=== PATIENT | female | born 1960 | race Caucasian/White ===

== ENCOUNTER 2019-10-19 20:21 | Emergency (ER) | payer OTHER, SELFPAY ==
--- NOTE | ~2019-10-19 | XR_ITS ---
EXAMINATION: XR chest 2V EXAM DATE: 10/19/2019 21:24 INDICATION: Cough, congestion and shortness of breath. TECHNIQUE: Frontal and lateral projections of the chest obtained and reviewed. Comparison is made to prior examination from 12/31/2013. FINDINGS: The lungs are clear. There are no pleural effusions. The cardiomediastinal silhouette is within normal limits. There is no pneumothorax suspected. The bones and soft tissues are unremarkab le. There are cholecystectomy clips. IMPRESSION: No acute cardiopulmonary findings. Reviewed, dictated and finalized at location A. STER[employer] ART THERAPIST
[2019-10-19 20:25] VITALS: BP 142/86; PULSE 101; RESP 22; TEMP 36.9; O2SAT 100
--- NOTE | 2019-10-19 20:37 | ED.URI ---
HPI - URI/Sore Throat General Chief Complaint: Upper Respiratory Infection Stated Complaint: CONGESTION Time Seen by Provider: 10/19/19 20:35 Source: patient and RN notes reviewed Mode of arrival: ambulatory Limitations: no limitations History of Present Illness HPI Narrative: Pt is a 59 y/o female presenting to the ED c/o SOB. Pt reports she started feeling sick with a ST last Thursday. Pt now states she is now experiencing congestion, SOB at rest, cough, and notes her ST has since resolved. Pt denies wheezing, fever, or N/V. Pt states she is not a smoker. Onset (ago): day(s) (4) Consistency: other (at rest) Associated symptoms: nasal congestion, sore throat (Resolved) and cough Related Data Allergies Allergy/AdvReac Type Severity Reaction Status Date / Time No Known Allergies Allergy Unverified 07/08/19 08:29 Review of Systems Review of Systems: All systems reviewed & are unremarkable except as noted in HPI and below Constitutional: Constitutional: Denies fever(s) ENT: Reports nasal congestion and Reports sore throat (Resolved) Respiratory: Respiratory: Reports cough, Reports dyspnea (at rest) and Denies wheezing Gastrointestinal: Gastrointestinal: Denies nausea and Denies vomiting PMFSH Past Medical History Medical History Anxiety Gallbladder disease HLD (hyperlipidemia) Hypothyroid Shingles Surgical History Surgical History History of History of cholecystectomy History of partial hysterectomy Family History Family History Mother Patient's mother is Social History Social History Smoking status: Never smoker Second hand tobacco smoke exposure: No Alcohol intake: never Gender identity (if verbalized by the patient): Female Exam Narrative: Exam Narrative: APPEARANCE: No acute distress, nontoxic, resting in bed EYES: EOMI HEENT: Normocephalic, atraumatic, TMs clear bilaterally, bilateral turbinates boggy, no erythema or exudate posterior pharynx, tender palpation of the bilateral maxillary sinus RESPIRATORY: No respiratory distress mild wheezing bilateral upper lung hooper with coughing only, no rhonchi or rales CARDIOVASCULAR: Regular rate and rhythm without murmurs rubs or gallops. ABDOMINAL: Soft, nontender, nondistended, no rebound or guarding MUSCULOSKELETAl: Moves all extremities. No clubbing, cyanosis or edema. NEURO: Awake and alert. Following commands, speech normal, no focal deficits SKIN:: Warm, dry. No rashes lesions or abrasions PSYCHIATRIC: Normal affect/mood, Course Course Emergency Course: Following breathing treatment patient states she is feeling much better. Repeat lung exam clear all station bilaterally Discussed with patient results of workup and diagnosis. Discussed need for follow-up with primary care, proper use of medication, and reasons to return to the emergency department. Patient understands and agrees to current treatment plan patient is currently taking Mucinex at home Vital Signs Vital signs: Vital Signs Temperature 98.4 F 10/19/19 20:25 Pulse Rate 101 H 10/19/19 20:25 Respiratory Rate 22 H 10/19/19 20:25 Blood Pressure 142/86 H 10/19/19 20:25 Pulse Oximetry 100 10/19/19 20:25 Temperature 98.4 F 10/19/19 20:25 Pulse Rate 105 H 10/19/19 21:10 Respiratory Rate 18 10/19/19 21:10 Blood Pressure 142/86 H 10/19/19 20:25 Pulse Oximetry 100 10/19/19 20:25 MDM - URI/Sore Throat Lab Data Labs: Influenza A Screen Negative Reference Range: Negative Influenza B Screen Negative Reference Range: Negative Imaging Data Radiologist's impression: ITS Impressions Chest X-Ray 10/19/19 21:25 IMPRESSION: No acute cardiopulmonary findings. Discharge Plan Discharge Cli
[2019-10-19] MEDS: IPRATROPIUM BR 0.02% INH SOLN 0.5 MG/2.5 ML VIAL INHALATION (20:56)
[2019-10-19] MEDS: ALBUTEROL SULFATE NEB 2.5 MG/0.5 ML INH 5 MG INHALATION (20:57)
[2019-10-19 21:00] VITALS: PULSE 98; RESP 20
[2019-10-19 21:10] VITALS: PULSE 105; RESP 18
[2019-10-19] MEDS: BENZONATATE 100 MG CAPSULE 200 MG PO (21:45)
[2019-10-19 21:49] VITALS: BP 141/90; PULSE 100; RESP 20; O2SAT 96
== END 2019-10-19 21:49 | disposition home or self-care (01) ==
PROVIDERS: Emergency Provider Emergency Medicine; PCP Physician Assistant
DX: J06.9 Acute upper respiratory infection, unspecified (principal); E78.5 Hyperlipidemia, unspecified; E03.9 Hypothyroidism, unspecified; F41.9 Anxiety disorder, unspecified
CPT/HCPCS: 71046; 87804; 94640; 99283; A9270

== ENCOUNTER 2020-08-27 10:15 | Emergency (ER) | payer OTHER, SELFPAY ==
[2020-08-27 10:26] VITALS: BP 129/74; PULSE 94; RESP 18; TEMP 36.7; O2SAT 97
--- NOTE | 2020-08-27 10:39 | ED.SKABFB ---
HPI - Skin/Abscess/Foreign Bdy General Chief complaint: Skin/Abscess/Foreign Body Stated complaint: rash Time Seen by Provider: 08/27/20 10:32 Source: patient and RN notes reviewed Mode of arrival: ambulatory Limitations: no limitations History of Present Illness HPI narrative: Patient presents today complaining of 5-day history of severely pruritic rash to most of the body surface, excluding the face, hands, and feet. It does continue to worsen since onset. Denies shortness of breath or difficulty swallowing. Denies changing any household products such as soaps, lotions, fabric softeners or laundry detergents. No new foods, animal plant exposures. 2 days prior to onset of symptoms, patient started a new medication, meloxicam, and stopped it the day she started with symptoms, believing it may be causing her symptoms. She has been taking calamine and Benadryl without relief. Denies any sick symptoms to include fever, fatigue, cough, congestion or rhinorrhea, sore throat. MD complaint: rash Related Data Allergies Allergy/AdvReac Type Severity Reaction Status Date / Time No Known Allergies Allergy Verified 08/27/20 10:32 Review of Systems Review of Systems: Narrative: CONSTITUTIONAL: Denies body aches, fever, chills, or sweats. EYES: Denies visual changes, redness, or discharge. ENT: Denies rhinorrhea, congestion, sore throat, or otalgia. CARDIOVASCULAR: Denies chest pain, palpitations, or edema. RESPIRATORY: Denies cough or dyspnea. GASTROINTESTINAL: Denies abdominal pain, nausea, vomiting, or diarrhea. GENITOURINARY: Denies dysuria or hematuria. SKIN: Denies wounds.+ Pruritic rash MUSCULOSKELETAL: Denies back pain, joint pain, or myalgia. NEUROLOGIC: Denies headache, numbness, tingling, or weakness. PSYCH: Denies depression or anxiety. [facility] Past Medical History Medical History (Updated 08/27/20 @ 10:44 by Cally Chase, MARY JANE, ) Anxiety Gallbladder disease HLD (hyperlipidemia) Hypothyroid Shingles Surgical History Surgical History History of History of cholecystectomy History of partial hysterectomy Family History Family History Mother Patient's mother is Social History Social History Smoking status: Never smoker Second hand tobacco smoke exposure: No Alcohol intake: never Gender identity (if verbalized by the patient): Female Comments At time of signature, I have reviewed and agree with nursing past medical, surgical, social and family history unless otherwise noted. Please see nursing chart for further information. There is no relevant family history pertinent to the presenting complaint Exam Narrative: Exam Narrative: GENERAL: Well-appearing, well-nourished, and in no acute distress. HEAD: Normocephalic, atraumatic. No facial swelling EYES: EOMI. No redness or drainage. Conjunctivae normal. ENT: Mucous membranes pink and moist. NECK: Normal AROM. Supple. No lymphadenopathy. Erythematous maculopapular rash to the anterior neck, that seems slightly more severe than the rest of the body. CHEST: No respiratory distress. Clear to auscultation. HEART: Regular rate and rhythm. EXTREMITIES: Normal range of motion. No edema. SKIN: Warm, dry. Capillary refill normal. Normal skin turgor. Erythematous maculopapular rash to the chest, abdomen, bilateral extremities, back. No vesicles or pustules. No drainage or crusting. NEURO: No focal deficits. Alert and oriented x3. Gait steady. PSYCH: Normal affect. No signs of depression or anxiety. Course Vital Signs Vital signs: Vital Signs Temperature 98.1 F 08/27/20 10:26 Pulse Rate 94 08/27/20 10:26 Respiratory Rate 18 08/27/20 10:26 Blood Pressure 129/74 08/27/20 10:26 Pulse Oximetry 97 08/27/20 10:26 Tempera
== END 2020-08-27 10:51 | disposition home or self-care (01) ==
PROVIDERS: Emergency Provider Nurse Practitioner; PCP Physician Assistant
DX: L30.9 Dermatitis, unspecified (principal); E78.5 Hyperlipidemia, unspecified; E03.9 Hypothyroidism, unspecified; Z90.711 Acquired absence of uterus with remaining cervical stump
CPT/HCPCS: 99213; G0463

== ENCOUNTER 2020-11-13 06:54 | Outpatient (NON) | payer OTHER, SELFPAY ==
[2020-11-13 18:12] LABS: SARS-CoV-2 RNA PCR Negative
== END 2020-11-13 06:55 ==
PROVIDERS: PCP Physician Assistant; Visit Provider Physician Assistant
DX: Z01.812 Encounter for preprocedural laboratory examination (principal); Z20.822 Contact with and (suspected) exposure to COVID-19
CPT/HCPCS: C9803; U0003; U0005

== ENCOUNTER → 2021-06-21 07:30 | Outpatient (CLI) | payer OTHER, SELFPAY ==
--- NOTE | ~2021-06-21 | MM_ITS ---
EXAMINATION: MM screening angela BI w torsten HISTORY: Screening TECHNIQUE: Craniocaudal and mediolateral oblique 3-D tomosynthesis images were obtained and synthetic 2-D images were generated. CAD analysis was submitted and interpreted. COMPARISON: Comparison to multiple prior studies sequentially, with oldest reviewed study dated 10/2015. BREAST PARENCHYMAL COMPOSITION: There are scattered areas of fibroglandular density. FINDINGS: There is no evidence of suspicious mass, calcification, or architectural distortion to sugg est malignancy in either breast. There has been no suspicious interval change. IMPRESSION: 1. No mammographic evidence of malignancy. 2. Recommend routine screening mammography in one year. BI-RADS Category 1: Negative Reviewed, dictated and finalized at location A.
== END ==
PROVIDERS: PCP Internal Medicine; Visit Provider Physician Assistant
DX: Z12.31 Encounter for screening mammogram for malignant neoplasm of breast (principal)
CPT/HCPCS: 77063; 77067

== ENCOUNTER 2023-06-12 01:25 | Day surgery (SDC) | payer OTHER, SELFPAY ==
[2023-06-01 13:06] VITALS: BMI 32.8
[2023-06-12 09:23] VITALS: BP 125/72; PULSE 71; RESP 20; TEMP 35.9; O2SAT 97; BMI 32.8
--- NOTE | 2023-06-12 09:29 | WPDANESEPPF ---
Anes - Initial Pre Proc Eval Procedure: Operation Date: 06/12/23 10:00 Proposed Procedures p Esophagogastroduodenoscopy & Colonoscopy - Leonel Escalante MD Date/Time: 06/12/23 09:29 Surgeon: Leonel Escalante MD Pre Op Diagnosis: acute posthemorrhagic anemia Patient Data Age: 63 Gender: F Height: 1.6 m Weight: 84.1 kg Last Vital Signs Temp 35.9 C L 06/12/23 09:23 Pulse 71 06/12/23 09:23 Resp 20 06/12/23 09:23 BP 125/72 06/12/23 09:23 Pulse Ox 97 06/12/23 09:23 O2 Del Method Room Air 06/12/23 09:23 Allergies Allergy/AdvReac Type Severity Reaction Status Date / Time meloxicam Allergy Blister Verified 06/12/23 09:04 Home Medications Medication Instructions Recorded Confirmed Type levothyroxine 88 mcg tablet 88 mcg PO DAILY #90 tabs 04/20/23 06/12/23 Rx alprazolam 0.25 mg tablet 0.25 mg PO BID PRN anxiety #60 tabs 05/22/23 06/12/23 Rx lisinopril 10 mg tablet 10 mg PO DAILY #90 tabs 05/25/23 06/12/23 Rx simvastatin 20 mg tablet 20 mg PO DAILY #90 tabs 05/25/23 06/12/23 Rx ferrous sulfate 325 mg (65 mg 325 mg PO DAILY 06/01/23 06/12/23 History iron) tablet mecobalamin (vitamin B12) 1,000 1,000 mcg PO DAILY 06/01/23 06/12/23 History mcg chewable tablet naproxen 500 mg tablet 500 mg PO BID PRN pain #180 tabs 06/04/23 06/12/23 Rx Patient hx anesthesia problems: none Family hx anesthesia problems: none Results Review: All pre-operative results and documents have been reviewed as part of the pre-operative evaluation. [facility] Past Medical History Medical History Anxiety Gallbladder disease HLD (hyperlipidemia) Hypothyroid Shingles Surgical History Surgical History History of History of cholecystectomy History of partial hysterectomy Family History Family History Mother Patient's mother is Social History Social History Smoking status: Never smoker Second hand tobacco smoke exposure: No Alcohol intake: never Current Housing: Decline to Answer Concerned About Future Housing: Decline to Answer Difficulty Paying Gas/Electric Bills: Decline to Answer Difficulty Paying for Meds: Decline to Answer Currently Unemployed: Decline to Answer Education: Decline to Answer Difficulty w/ Childcare or Family Care: Decline to Answer Living arrangements: with family Gender identity (if verbalized by the patient): Female Spiritual care concerns: No Anes - Eval Final PreProcedure Day of Procedure 06/12/23 09:29 Patient weight: obese Heart: regular rate and rhythm Lungs: clear to auscultation Airway: Mallampati scale class II Neurological: alert and oriented Last oral intake: >/= 8 hours ASA classification: III Emergent: no Anesthetic plan: proceed Anesthesia type and monitoring: general GIVS and standard monitoring Results Review: All pre-operative results and documents have been reviewed as part of the pre-operative evaluation. Informed Consent: The patient's anesthetic plan and its attendant risks and benefits were discussed with the patient/family/POA. Questions were solicited and answers provided to the satisfaction of the patient/family/POA.
[2023-06-12] MEDS: LACTATED RINGERS 1,000 ML 150 ML IV CONT (09:30)
--- NOTE | 2023-06-12 09:41 | PM.HPGS ---
History of Present Illness History of Present Illness Consent: Risks, benefits, and alternatives have been discussed and questions answered. Patient agrees to proceed with procedure. Chief complaint: iron deficiency anemia Narrative: Vero Anderson is a 63 year old female Presents for colonoscopy and EGD. The patient had routine laboratory testing done in April which revealed microcytic anemia. Iron indices are deficient. Patient denies any obvious bleeding. She denies any abdominal pain. Her family history is noncontributory. Patient presents today for GI endoscopy. She has been started on iron replacement is noticed some darkening of her stool since then but none previous. Family history is noncontributory. Patient denies abdominal pain. Review of Systems Review of Systems: Review of systems noncontributory. [facility] Past Medical History Medical History Anxiety Gallbladder disease HLD (hyperlipidemia) Hypothyroid Shingles Surgical History Surgical History History of History of cholecystectomy History of partial hysterectomy Family History Family History Mother Patient's mother is Social History Social History Smoking status: Never smoker Second hand tobacco smoke exposure: No Alcohol intake: never Current Housing: Decline to Answer Concerned About Future Housing: Decline to Answer Difficulty Paying Gas/Electric Bills: Decline to Answer Difficulty Paying for Meds: Decline to Answer Currently Unemployed: Decline to Answer Education: Decline to Answer Difficulty w/ Childcare or Family Care: Decline to Answer Living arrangements: with family Gender identity (if verbalized by the patient): Female Spiritual care concerns: No Meds Home Medications and Allergies Home Medications Medication Instructions Recorded Confirmed Type levothyroxine 88 mcg tablet 88 mcg PO DAILY #90 tabs 04/20/23 06/12/23 Rx alprazolam 0.25 mg tablet 0.25 mg PO BID PRN anxiety #60 tabs 05/22/23 06/12/23 Rx lisinopril 10 mg tablet 10 mg PO DAILY #90 tabs 05/25/23 06/12/23 Rx simvastatin 20 mg tablet 20 mg PO DAILY #90 tabs 05/25/23 06/12/23 Rx ferrous sulfate 325 mg (65 mg 325 mg PO DAILY 06/01/23 06/12/23 History iron) tablet mecobalamin (vitamin B12) 1,000 1,000 mcg PO DAILY 06/01/23 06/12/23 History mcg chewable tablet naproxen 500 mg tablet 500 mg PO BID PRN pain #180 tabs 06/04/23 06/12/23 Rx Allergies Allergy/AdvReac Type Severity Reaction Status Date / Time meloxicam Allergy Blister Verified 06/12/23 09:04 Vital Signs Vital Signs - 24 hr 06/12/23 09:23 Temperature 96.6 F L Pulse Rate 71 Respiratory Rate 20 Blood Pressure 125/72 Pulse Oximetry 97 Oxygen Delivery Room Air Exam Narrative: Physical exam reveals patient to be alert. Vital signs stable. HEENT exam is unremarkable. Patient is anicteric. Lungs are clear to auscultation and percussion. Heart is without murmur or extra sounds. Abdomen bowel sounds are present soft nontender with no hepatosplenomegaly. Digital external rectal exam normal. Assessment and Plan Assessment and plan (1) KIM (iron deficiency anemia): Code(s): D50.9 - Iron deficiency anemia, unspecified Status: Acute Assessment and Plan: Patient with newly identified iron deficiency anemia. Microcytic anemia developed over the last 1 year. No obvious GI blood loss by history. Plan for colonoscopy and EGD today.
[2023-06-12] MEDS: BENZOCAINE (*SP) 60 ML SPRAY CAN (HURRICAINE) 1 SPRAY MUCOUS MEM (09:59)
--- NOTE | 2023-06-12 10:06 | SUR.OPER ---
EGD ended at 958, colonoscopy began at 1005.
[2023-06-12 10:22] VITALS: BP 97/43; PULSE 66; RESP 19; O2SAT 93
[2023-06-12 10:32] VITALS: BP 101/47; PULSE 57; RESP 17; O2SAT 94
[2023-06-12 10:42] VITALS: BP 101/47; PULSE 61; RESP 18; O2SAT 94
== END 2023-06-12 11:00 | disposition home or self-care (01) ==
PROVIDERS: PCP Physician Assistant; Visit Provider Internal Medicine Gastroenterology
PROC: 0DJ08ZZ Inspection of Upper Intestinal Tract, Via Natural or Artificial Opening Endoscopic (ICD-10-PCS; CPT 43235; principal; 2023-06-12 10:00)
DX: D50.9 Iron deficiency anemia, unspecified (principal); D12.8 Benign neoplasm of rectum; K64.8 Other hemorrhoids; K57.30 Diverticulosis of large intestine without perforation or abscess without bleeding; E78.5 Hyperlipidemia, unspecified; E03.9 Hypothyroidism, unspecified; F41.9 Anxiety disorder, unspecified; E66.9 Obesity, unspecified; Z68.32 Body mass index [BMI] 32.0-32.9, adult
CPT/HCPCS: 45385; 43239; 88305; J2704; J7120

== ENCOUNTER 2023-06-29 09:34 | Outpatient (CLI) | payer OTHER, SELFPAY ==
--- NOTE | ~2023-06-29 | XR_ITS ---
EXAMINATION: XR small bowel follow through DATE: 06/29/2023 10:40 INDICATION: Iron deficiency anemia, unspecified. TECHNIQUE: Oral contrast was administered, and a time course of radiographs of the abdomen was obtain ed. Fluoroscopy of the small bowel was performed. Fluoroscopy exposure time was 0.3 minutes. The tota l number of images was 14. COMPARISON: CT abdomen and pelvis 12/14/2012 FINDINGS: There are no dilated loops of bowel. There is no mass or stricture. Transit time from the stomach to proximal colon was approximately 30 minutes. IMPRESSION: 1. Normal small bowel series. Reviewed, dictated and finalized at location A.
== END 2023-06-29 09:35 | disposition home or self-care (01) ==
PROVIDERS: PCP Physician Assistant; Visit Provider Internal Medicine Gastroenterology
DX: D50.9 Iron deficiency anemia, unspecified (principal)
CPT/HCPCS: 74250

== ENCOUNTER → 2023-08-21 07:22 | Outpatient (CLI) | payer OTHER, SELFPAY ==
--- NOTE | ~2023-08-21 | MM_ITS ---
EXAMINATION: MM screening angela BI w torsten HISTORY: Screening mammogram TECHNIQUE: Craniocaudal and mediolateral oblique 3-D tomosynthesis images were obtained and synthetic 2-D images were generated. CAD analysis was submitted and interpreted. COMPARISON: 07/08/2021, 05/11/2018 BREAST PARENCHYMAL COMPOSITION: The breasts are almost entirely fatty. FINDINGS: No suspicious mass, calcification, or architectural distortion are identified in either manuel ast to suggest malignancy. There has been no suspicious interval change. IMPRESSION: 1. No mammographic evidence of malignancy. 2. Recommend routine screening mammography in one year. BI-RADS Category 1: Negative Reviewed, dictated and finalized at location A.
== END ==
PROVIDERS: PCP Physician Assistant; Visit Provider Physician Assistant
DX: Z12.31 Encounter for screening mammogram for malignant neoplasm of breast (principal)
CPT/HCPCS: 77063; 77067

== ENCOUNTER 2025-05-04 08:51 | Outpatient (CLI) | payer MEDICARE, SELFPAY ==
--- NOTE | ~2025-05-04 | US_ITS ---
Limited Abdominal Sonogram: Real-time sonographic imaging of the right upper quadrant was performed. Clinical History: Right upper quadrant pain Findings: The liver appears echogenic with no evidence of mass lesion or bile duct dilatation. Main portal vein demonstrates normal direction of flow. The gallbladder is absent, compatible prior cholec ystectomy. The common bile duct measures 5 mm. The visualized pancreas, aorta, and IVC are unremarka ble. Impression: Diffuse fatty infiltration of liver. Status post cholecystectomy. Reviewed, dictated and finalized at location . Impression: Diffuse fatty infiltration of liver. Status post cholecystectomy.
== END 2025-05-04 08:52 | disposition home or self-care (01) ==
LOC: MICIMG 08:52
PROVIDERS: PCP Internal Medicine; Visit Provider Internal Medicine
DX: R10.11 Right upper quadrant pain (principal); K76.0 Fatty (change of) liver, not elsewhere classified; Z90.49 Acquired absence of other specified parts of digestive tract
CPT/HCPCS: 76705

== ENCOUNTER 2025-06-12 09:34 | Outpatient (CLI) | payer MEDICARE, SELFPAY ==
--- OUTSIDE RECORDS SUMMARY | 1999-12-19 12:45 | XMS_ITS | Continuity of Care Document ---
Author Organization [facility] Address [id number] [place] [address] [facility] [address] [place] [address] Phone Care Team Providers Care Peer Specialist Name Role Phone Lemus OD, Leonel Unavailable Unavailable Advance Directives Directive Yes / No Effective Date File Name No Information Encounters Encounter Description Practice Location Reason(s) For Visit Diagnoses Date Provider Providers Copied on Encounter [facility], [address], [place], [place], [id number], [place] tel:[phone] [facility] No Information Mar-0 2-200 0 Lemus OD Leonel. [address] , [address], [place], [address], [place]. tel:[phone] Family History Family Member Type Diagnosis Age At Onset No Information Payers Payer name Insurance type Covered libertarian ID Authoriza tion(s) No Information Social History Type Description Quantity Date Captured Comments Sex Female Smoking Status No Information Chief Complaint And Reason For Visit No Information Reason For Referral Reason For Referral No Information History Of Present Illness Encounter Date Complaint History Of Prese nt Illness No Information Functional Status Date Functional Assessmen t No Information Instructions Date Instruction Additional Infor mation No Information Assessments Type Assessment Date No Information Patient Care Teams Name Effective Dates (start - stop) Status Members No Information
--- OUTSIDE RECORDS SUMMARY | 2009-07-04 04:40 | XMS_ITS | Continuity of Care Document ---
Author Organization [facility] Address [address] [facility] [address] [place] [address] Phone Care Team Providers Care Nurse Healthcare Manager Name Role Phone Unavailable Unavailable Unavailable Procedures Procedure Date [facility] [place] [facility] [place] Drain/inject major jointor bursa 2008 Kenalog Triamcinolone acetonide inj X-ray exam of shoulder, complete 2008 Advance Directives Directive Yes / No Effective Date File Name No Information Encounters Encounter Description Practice Location Reason(s) For Visit Diagnoses Date Provider Providers Copied on Encounter Office[facility]pat [facility] [place] [facility], [address], [id number], tel:[phone] [facility] No Information No Information [facility], [address], [id number], [place] tel:[phone] [employer] No Information No Information Referring Provider: Nick Guzman, [address] [facility] [address], [place], [address]. tel:[phone] Family History Family Member Type Diagnosis Age At Onset No Information Payers Payer name Insurance type Covered democrat ID Authoriza tion(s) Josiane Ibarra [id number] Social History Type Description Quantity Date Captured [...]
--- NOTE | ~2025-06-12 | XR_ITS ---
EXAMINATION: XR UGIAC w barium swallow DATE: 06/12/2025 10:28 INDICATION: Nausea TECHNIQUE: The patient drank thick barium, gas-producing crystals, and thin barium. A total of 1412 fluoroscopic spot radiographs of the hypopharynx, esophagus, stomach and proximal small bowel were obtained. Fluoroscopy exposure time was 2.1 minutes. Total DAP was 11.165 mGycm^2 COMPARISON: None. FINDINGS: The pharynx is symmetric and without evidence of mass lesion or mucosal irregularity. The esophagus is normal without mass or stricture. Esophageal motility is normal. There is a small sliding-type hiatal hernia with gastroesophageal junction approximately 3-4 cm above the level of the diaphragm. There was no gastroesophageal reflux with provocative maneuvers. The stomach and proximal small bowel are normal. IMPRESSION: 1. Small sliding-type hiatal hernia without gastroesophageal reflux with provocative maneuvers. Otherwise normal esophagram and upper GI study. Reviewed, dictated and finalized at location A. IMPRESSION: 1. Small sliding-type hiatal hernia without gastroesophageal reflux with provoc ative maneuvers. Otherwise normal esophagram and upper GI study.
--- OUTSIDE RECORDS SUMMARY | 2025-06-12 10:18 | XMS_ITS | Clinical Summary ---
Author Organization [facility] [place] Address [address] [place] [address] Phone Care Team Providers Care Vp Of Customer Experience Strategy Name Role Phone Topher Guo PA-C Primary Care Provide r Allergies Active Allergy Reactions Criticality Noted Date Comments Meloxicam Hives High 10/09/2020 Medications levothyroxine 100 mcg tablet Take 100 mcg by mouth daily in the morning. Active atorvastatin (LIPITOR) 10 mg tablet Take by mouth daily at bedtime. Active aspirin (ECOTRIN EC) 81 mg Tablet, Delayed Release (E.C.) Take 81 mg by mouth daily. Active omega-3 fatty acids-fish oil 300-1,000 mg Capsule Take by mouth daily. Active multivitamin (DAILY-MARCIA) tablet Take 1 Tablet by mouth daily. Active lisinopriL (PRINIVIL) 10 mg tablet Take 10 mg by mouth daily at bedtime. 10/08/2020 Active ALPRAZolam (XANAX) 0.25 mg tablet Take 0.25 mg by mouth 2 times daily as needed. 09/10/2020 Active gabapentin (NEURONTIN) 300 mg capsule TAKE 1 CAPSULE(300 MG) BY MOUTH DAILY AT BEDTIME 90 Capsule 01/10/2022 Active Active Problems Problem Noted Date Diagnosed Date Breast lump 05/19/2018 Family History Medical History Relation Name Comments Heart Failure Father Liver Cancer Mother Relation Name Status Comments Father Mother Social History Tobacco Use Types Packs/Day Years Used Date Smoking Tobacco: Never Smokeless Tobacco: Never Tobacco Cessation:Counseling Given: No Alcohol Use Standard Drinks/Week Comments Yes 0 (1 standard drink = 0.6 oz pur e alcohol) Comments No Sex and Gender Information Value Date Recorded Sex Assigned at Not on file Legal Sex Female 1:18 PM CDT Gender Identity Not on file Sexual Orientation Not on file Last Filed Vital Signs Vital Sign Reading Time Taken Comments Blood Pressure 145/88 03/12/2022 9:50 AM CDT Pulse 64 03/12/2022 9:50 AM CDT Temperature 36.7 C (98.1 F) 11/17/2020 8:20 AM SPECIAL EVENT ASSISTANT Respiratory Rate 17 03/12/2022 9:50 AM CDT Oxygen Saturation 99% 03/12/2022 9:50 AM CDT Inhaled Oxygen Concentration - - Weight 83.9 kg (185 lb) 11/26/2021 10:27 AM SPECIAL EVENT ASSISTANT Height 157.5 cm (5' 2) 11/26/2021 10:27 AM SPECIAL EVENT ASSISTANT Body Mass Index 33.84 11/26/2021 10:27 AM SPECIAL EVENT ASSISTANT Plan of Treatment Health Maintenance Due Date Last Done Comments COLORECTAL SCREENING 2004 Colorectal Cancer Screening 2004 FIT-DNA Q 3 years 2004 FIT/FOBT Q 1 year 2004 Flex Sig/CT Colonography Q 5 years 2004 PNEUMOCOCCAL VACCINE 50+ YEA RS (1 of 1 - PCV) 2009 ZOSTER VACCINE (1 of 2) 2009 BREAST CANCER SCREENING 12/14/2019 12/14/19 19, 05/11/2018, 11/06/2017, Additional history exists DTAP/TDAP/TD VACCINES (2 - T d or Tdap) 09/08/2022 09/08/2012 OSTEOPOROSIS SCREENING 2024 INFLUENZA VACCINE (#1) 2025 07/26/2012 RSV VACCINE (60+ or ) (1 - 1-dose 75+ series) 2034 Medical Devices Implanted Type Area Rn Documentation Specialist Device Identifier Shelf Expiration Date Model / Serial / Lot Vitoss Foam Pack Ba2x 1.2ml - Sna Implanted:Qty : 1 on 11/16/2020 by Nguyễn Fung MD at [facility] N/A: Spine Cervical Anterior CORINE- SPINE 01/13/2021 / NA / [id number] Hemostatic Surgiflo 8ml W/Thrombin 2994 - [id number] Implanted:Qty : 1 on 11/16/2020 by Nguyễn Fung MD at [facility] Hemostatic N/A: Neck J[employer]J- [employer] 07/18/2021 2994 / / [id number] Hemostatic Surgifoam Sz12-7 1971 - [id number] Implanted:Qty : 1 on 11/16/2020 by Nguyễn Fung MD at [facility] Hemostatic N/A: Neck J&J- ETHICON ENDO-SURGERY INC 02/01/2024 1972 / / [id number] Plate Aviator 1lvl 12mm [id number] - [id number] Implanted:Qty : 1 on 11/16/2020 by Nguyễn Fung MD at [facility] Plate N/A: Spine Cervical Anterior CORINE- SPINE [id number] / / Description:load process 11/16/20 BARBI REQ#[id number] Screw Avtr Va St 4.0x14mm [id number] - [id number] Implanted:Qty : 2 on 11/16/2020 by Nguyễn Fung MD at [facility] Screw N/A: Spine Cervical Anterior CORINE- SPINE [id number] / / Description:load [id number] process 11/16/[address] 4.0x14mm [id number] - [id number] Implanted:Qty : 2 on 11/16/2020 by Nguyễn Fung MD at [facility] Screw N/A: Spine Cervical Anterior CORINE- SPINE [id number] / / Description:load [id number] process 11/15/2020 Procedures Procedure Name Priority Date/Time Associated Diagnosis Comments MAMMO DIAG UNI LEFT 3D ROSE MARY W OR WO CAD Routine 12/14/2018 Left breast mass from Last 3 Months or Most Recently Relevant to Health Maintenance Results * MAMMO DIAG UNI LEFT 3D ROSE MARY W OR WO CAD (12/14/2018) Anatomical Region Laterality Modality Breast Left Mammography Ny Desai MD MAMMO ORDERABLES Final Result from Last 3 Months or Most Recently Relevant to Health Maintenance Insurance [facility] OPTIONS PPO [id number] RX EXPRESS SCRIPTS Express RX EXPRESS SCRIPTS Express Advance Directives For more information, please contact: [phone] * Full Code (Latest Code Status on File) Date Activated Date Inactivated Comments 11/16/2020 11:41 AM 11/17/2020 3:55 PM Care Teams Vp Of Customer Experience Strategy Relationship Specialty Start Date End Date Topher Guo PA-C PCP - General Physician Paint Department Supervisor 08/22/20
== END 2025-06-12 09:35 | disposition home or self-care (01) ==
PROVIDERS: PCP Internal Medicine; Visit Provider Internal Medicine
DX: R11.0 Nausea (principal); K44.9 Diaphragmatic hernia without obstruction or gangrene
CPT/HCPCS: 74246

== ENCOUNTER 2025-09-05 02:06 | Day surgery (SDC) | payer MEDICARE, SELFPAY ==
[2025-08-25 10:08] VITALS: BMI 33.8
--- OUTSIDE RECORDS SUMMARY | 2025-09-05 03:15 | XMS_ITS | Clinical Summary ---
Author Organization [facility] [place] Address [address] [place] [address] Care Team Providers Care Manager Immunology Name Role Phone Abram Aguilar DO Primary Care Provider [phone] Allergies No known active allergies Active Problems Problem Noted Date Diagnosed Date Atopic rhinitis 03/04/2014 Overview (01/21/2017): ALLERGIC RHINITIS NOS Hypothyroidism 03/04/2014 Overview (01/23/2017): Hypothyroidism Hyperlipidemia 03/04/2014 Overview (01/23/2017): HYPERLIPIDEMIA NEC/NOS Hematochezia 11/17/2012 Encounters Date Type Department Care Team Description 07/25/2025 12:32 PM CDT - 07/25/2025 11:59 PM CDT [facility] [place] [address] [place] [address] Other fecal abnormalities; Nausea; Right upper quadrant pain Discharge Disposition: Discharge to home or self care from Last 3 Months Immunizations Immunization Administration Dates Next Due Influenza, Split 10/21/2010 Influenza, Trivalent, IM (MDV) 07/26/2012 Tdap 09/08/2012 Surgical History Surgery Date Site/Laterality Comments OTHER SURGICAL HISTORY 2005 Open CCK OTHER SURGICAL HISTORY Combined papillary stenosis: ERCP / sphincterotomies CHOLECYSTECTOMY Cholecystectomy SECTION section Medical History Medical History Date Comments Herpes zoster 2007 Herpes zoster Hx Other Medical 2010 Combined papill martin stenosis Family History Medical History Relation Name Comments Liver cancer Mother 2 Cancer, liver; Other Mother 2 Hepatitis B; Relation Name Status Comments Mother 1 Mother 2 Social History Tobacco Use Types Packs/Day Years Used Date Smoking Tobacco: Never Alcohol Use Standard Drinks/Week Comments Yes 0 (1 standard drink = 0.6 oz pur e alcohol) Comments Unknown Sex and Gender Information Value Date Recorded Sex Assigned at Not on file Legal Sex Female 7:40 PM ACCOUNT DEVELOPMENT REPRESENTATIVE Gender Identity Not on file Sexual Orientation Not on file Last Filed Vital Signs Vital Sign Reading Time Taken Comments Blood Pressure 147/88 11/15/2012 2:57 PM ACCOUNT DEVELOPMENT REPRESENTATIVE Pulse 87 11/15/2012 2:57 PM ACCOUNT DEVELOPMENT REPRESENTATIVE Temperature - - Respiratory Rate - - Oxygen Saturation - - Inhaled Oxygen Concentration - - Weight 85.4 kg (188 lb 4 oz) 11/15/2012 2:57 PM ACCOUNT DEVELOPMENT REPRESENTATIVE Height 158.8 cm (5' 2.5) 11/15/2012 2:57 PM ACCOUNT DEVELOPMENT REPRESENTATIVE Body Mass Index 33.88 11/15/2012 2:57 PM ACCOUNT DEVELOPMENT REPRESENTATIVE Plan of Treatment Health Maintenance Due Date Last Done Comments Breast Cancer Screening-Mammogram 1959 Colon Cancer Screening-Colonoscopy 1959 Depression Screening 1959 Fall Risk Assessment 1959 Hepatitis C Screening 1959 Osteoporosis Screening-Bone Density Scan 1959 Hepatitis B Screening 1977 Pneumococcal vaccine 65+ (1 of 1 - PCV) 2009 DTaP/Tdap/Td Vaccine (2 - Td or Tdap) 09/08/2022 09/08/2012 Well Visit 65+ 2024 Covid-19 Vaccine (3 - 2024-2 6 season) 2025 09/04/2021, 12/25/2020 Zoster Vaccine Completed 11/15/2019, 07/20, 04/03/2014 Influenza Vaccine Completed 06/26/2025, , 08/09/2014, Additional history exists Procedures Procedure Name Priority Date/Time Associated Diagnosis Comments CT ABDOMEN PELVIS W CONTRAST Schedule Routine, Read Routine (OP Routine) 07/25/2025 1:02 PM CDT Other fecal abnormalities Nausea Right upper quadrant pain from Last 3 Months Results * CT Abdomen Pelvis W Contrast (07/25/2025 1:02 PM CDT) Anatomical Region Laterality Modality Body N/A Computed Tomogra phy 07/28/2025 10:2 1 AM CDT Narrative 07/28/2025 10:40 AM CDT EXAM DESCRIPTION: CT ABDOMEN PELVIS W CONTRAST REASON FOR STUDY: other fecal abnormalities other fecal abnormalities Dx: Other fecal abnormalities R19.5 (ICD-10-CM); Nausea R11.0 (ICD-10-CM); Right upper quadrant pain for 3 months TECHNIQUE: CT scan of the abdomen and pelvis performed with intravenous and without oral contrast using helical scanning technique with dynamic intravenous contrast injection. Reconstructed coronal and sagittal MPR images reviewed. All images stored on PACS. Automated exposure control was used as a dose optimization technique for this examination. CONTRAST TYPE/DOSE: 100mL of IOVERSOL 350 MG IODINE/ML INTRAVENOUS SYRINGE injected via intravenous COMPARISON: No comparison. FINDINGS: LOWER CHEST: No significant pulmonary abnormalities. No effusion. Few tiny areas of pleuroparenchymal thickening in the range of 2-3 mm are noted.. LIVER: Mild diffuse fatty infiltration. No focal lesion. Slight micronodular contour with mildly enlarged left hepatic lobe. Please correlate with clinical factors. GALLBLADDER: Surgically absent. BILE DUCTS: No intrahepatic or extrahepatic ductal dilatation. SPLEEN: Normal size. No focal lesions. PANCREAS: No identified cystic or solid masses. No significant calcifications. No adjacent inflammation or peripancreatic fluid collections. Pancreatic duct not dilated. ADRENALS: Normal. KIDNEYS/URINARY TRACT: Small low dense cystic lesion along the posterior right kidney measuring 1 cm. Solid-appearing lesion. The collecting systems are normal. No hydronephrosis. No ureteral stone.. Urinary bladder is unremarkable. GI: Extensive diverticulosis of the sigmoid colon with wall thickening. Minimal Alexandrea sigmoid stranding. Sigmoidoscopy may be considered for further evaluation. Note is made of a small rounded low density collection along the undersurface of sigmoid colon contiguous with the vaginal cuff best seen on sagittal image 77. This structure measures 1.2 cm. It is not entirely clear if this is related to the sigmoid colon or the vaginal cuff. PERITONEUM: No ascites or free air. RETROPERITONEUM: No mass or adenopathy. REPRODUCTIVE: Hysterectomy. VASCULATURE: No abdominal aortic aneurysm. MUSCULOSKELETAL: Disc degeneration at L4-5 L5-S1. OTHER: No other abnormality. IMPRESSION: 1. Mild diffuse fatty infiltration of the liver with slight micronodular contour and enlargement of the left hepatic lobe. Please correlate with clinical factors. 2. Extensive sigmoid diverticulosis with wall thickening and minimal pericolonic stranding. Sigmoidoscopy may be considered for further evaluation. 3. Small rounded low density collection along the undersurface of the sigmoid colon contiguous with the vaginal cuff. Whether this is related to the sigmoid colon or the vaginal cuff is not entirely clear from these images.. Please correlate with clinical findings. 4. Cholecystectomy. 5. Small right renal cyst. 6. Disc degeneration at L4-5 and L5-S1. THIS IS AN ELECTRONICALLY VERIFIED FINAL REPORT 07/28/2025 10:40 AM - Electronically signed by Marcia Villanueva M.D. T: Report ID: [id number] Reading Location: [id number] Procedure Note Leonora Villanueva MD - 07/28/2025 EXAM DESCRIPTION: CT ABDOMEN PELVIS W CONTRAST REASON FOR STUDY: other fecal abnormalities other fecal abnormalities Dx: Other fecal abnormalities R19.5(ICD-10-CM); Nausea R11.0 (ICD-10-CM); Right upper quadrant pain for 3 months TECHNIQUE: CT scan of the abdomen and pelvis performed with intravenousand without oral contrast using helical scanning technique with dynamic intravenous contrast injection. Reconstructed coronal and sagittal MPRimages reviewed. All images stored on PACS. Automated exposure control was usedas a dose optimization technique for this examination. CONTRAST TYPE/DOSE: 100mL of IOVERSOL 350 MG IODINE/ML INTRAVENOUSSYRINGE injected via intravenous COMPARISON: No comparison. FINDINGS: LOWER CHEST: No significant pulmonary abnormalities. Noeffusion. Few tiny areas of pleuroparenchymal thickening in the range of 2-3 mm are noted.. LIVER: Mild diffuse fatty infiltration. No focal lesion. Slight micronodular contour with mildly enlarged left hepatic lobe. Pleasecorrelate with clinical factors. GALLBLADDER: Surgically absent. BILE DUCTS: No intrahepatic or extrahepatic ductal dilatation. SPLEEN: Normal size. No focal lesions. PANCREAS: No identified cystic or solid masses. No significant calcifications. No adjacent inflammation or peripancreatic fluidcollections. Pancreatic duct not dilated. ADRENALS: Normal. KIDNEYS/URINARY TRACT: Small low dense cystic lesion along the posterior right kidney measuring 1 cm. Solid-appearing lesion. The collectingsystems are normal. No hydronephrosis. No ureteral stone.. Urinary bladder is unremarkable. GI: Extensive diverticulosis of the sigmoid colon with wall thickening. Minimal Alexandrea sigmoid stranding. Sigmoidoscopy may be considered forfurther evaluation. Note is made of a small rounded low density collection alongthe undersurface of sigmoid colon contiguous with the vaginal cuff best seenon sagittal image 77. This structure measures 1.2 cm. It is not entirelyclear if this is related to the sigmoid colon or the vaginal cuff. PERITONEUM: No ascites or free air. RETROPERITONEUM: No mass or adenopathy. REPRODUCTIVE: Hysterectomy. VASCULATURE: No abdominal aortic aneurysm. MUSCULOSKELETAL: Disc degeneration at L4-5 L5-S1. OTHER: No other abnormality. IMPRESSION: 1. Mild diffuse fatty infiltration of the liver with slight micronodular contour and enlargement of the left hepatic lobe. Please correlate with clinical factors. 2. Extensive sigmoid diverticulosis with wall thickening and minimal pericolonic stranding. Sigmoidoscopy may be considered for furtherevaluation. 3. Small rounded low density collection along the undersurface of the sigmoid colon contiguous with the vaginal cuff. Whether this is relatedto the sigmoid colon or the vaginal cuff is not entirely clear from these images.. Please correlate with clinical findings. 4. Cholecystectomy. 5. Small right renal cyst. 6. Disc degeneration at L4-5 and L5-S1. THIS IS AN ELECTRONICALLY VERIFIED FINAL REPORT 07/28/2025 10:40 AM - Electronically signed by Marcia CARVALHO T: Report ID: [id number] Reading Location: [place] [address] [address] NP IMG [address] PROCEDURES Final Result from Last 3 Months Insurance [phone] ([address] [place] [address] [employer] MEDICARE GOLD AETNA MEDICARE GOLD Care Teams Manager Immunology Relationship Specialty Start Date End Date Abram Aguilar DO [address] [place] [address] PCP - General Internal Medicine 07/17/25
--- OUTSIDE RECORDS SUMMARY | 2025-09-05 03:16 | XMS_ITS | Clinical Summary ---
Author Organization [facility] Address [address] [place] [address] Phone Care Team Providers Care Historical Records Administrator Name Role Phone Topher Guo PA-C Primary [...] 36.7 C (98.1 F) 11/17/2020 8:20 AM PULP MILL OPERATOR Respiratory Rate 17 03/12/2022 9:50 AM CDT Oxygen Saturation 99% 03/12/2022 9:50 AM CDT Inhaled Oxygen Concentration - - Weight 83.9 kg (185 lb) 11/26/2021 10:27 AM PULP MILL OPERATOR Height 157.5 cm (5' 2) 11/26/2021 10:27 AM PULP MILL OPERATOR Body Mass Index 33.84 11/26/2021 10:27 AM PULP MILL OPERATOR Plan of Treatment Health Maintenance Due Date [...] series) 2034 Medical Devices Implanted Type Area Handicapper Harness Racing Device Identifier Shelf Expiration Date Model / Serial / Lot Vitoss Foam Pack Ba2x 1.2ml - Sna Implanted:Qty : 1 on 11/16/2020 by Nguyễn Fung MD at [facility] N/A: Spine Cervical Anterior CORINE- SPINE 01/13/20212120-9139 / NA / [id number] Hemostatic Surgiflo 8ml W/Thrombin 2994 - [id number] Implanted:Qty : 1 on 11/16/2020 by Nguyễn Fung MD at [facility] Hemostatic N/A: Neck J[employer]J- [employer] 07/18/2021 2994 / / [id number] Hemostatic Surgifoam Sz12-7 1971 - [id number] Implanted:Qty : 1 on 11/16/2020 by Nguyễn Fung MD at [facility] Hemostatic N/A: Neck J&J- ETH[employer]ON ENDO-SURGERY INC 02/01/2024 1972 / / [id number] Plate Aviator 1lvl 12mm [id number] - [id number] Implanted:Qty : 1 on 11/16/2020 by Nguyễn Fung MD at [facility] Plate N/A: Spine Cervical Anterior CORINE- SPINE [id number] / / Description:load [id number] process 11/16/20 BARBI REQ#[id number] Screw Avtr Va St 4.0x14mm [id number] - [id number] Implanted:Qty : 2 on 11/16/2020 by Nguyễn Fung MD at [facility] Screw N/A: Spine Cervical Anterior CORINE- SPINE [id number] / / Description:load [id number] process 11/16/[address] 4.0x14mm [id number] - [id number] Implanted:Qty : 2 on 11/16/2020 by Nguyễn Fung MD at [facility] Screw N/A: Spine Cervical Anterior CORINE- SPINE [id number] / / Description:load [id number] process 11/15/2020 Procedures Procedure Name Priority Date/Time [...] Most Recently Relevant to Health Maintenance Insurance [facility] OPTIONS PPO [id number] RX EXPRESS SCRIPTS Express RX EXPRESS SCRIPTS Express Advance Directives For more information, please contact: [phone] * Full Code (Latest Code Status on File) Date Activated Date Inactivated Comments 11/16/2020 11:41 AM 11/17/2020 3:55 PM Care Teams Historical Records Administrator Relationship Specialty Start Date End Date Topher Guo PA-C PCP - General Physician Retail Associate 08/22/20
[2025-09-05 09:40] VITALS: BP 136/75; PULSE 59; RESP 12; TEMP 36.2; O2SAT 97; BMI 33.7
[2025-09-05] MEDS: LACTATED RINGERS 1,000 ML 150 ML IV CONT (09:57)
--- NOTE | 2025-09-05 10:19 | P.PNAN_ITS ---
Anes - Initial Pre Proc Eval Procedure: Operation Date: 09/05/25 10:30 Proposed Procedures p EGD & Diagnostic Colonoscopy - Moncho Hickman MD Date/Time: 09/05/25 10:19 Surgeon: Moncho Hickman MD Pre Op Diagnosis: Iron deficiency anemia, unspecified Patient Data Age: 65 Gender: F Height: 1.57 m Weight: 83.6 kg Last Vital Signs Temp 36.2 C L 09/05/25 09:40 Pulse 59 L 09/05/25 09:40 Resp 12 09/05/25 09:40 BP 136/75 09/05/25 09:40 Pulse Ox 97 09/05/25 09:40 O2 Del Method Room Air 09/05/25 09:40 Allergies Allergy/AdvReac Type Severity Reaction Status Date / Time meloxicam Allergy Intermediate Hives Verified 09/05/25 09:48 Home Medications ?Medication ?Instructions ?Recorded ?Confirmed ?Type naproxen 500 mg tablet See Rx Instructions .Route 0 04/25/25 09/05/25 Rx .COMPLEX #180 tabs levothyroxine 88 mcg tablet 88 mcg PO DAILY #90 tabs 0 04/26/25 09/05/25 Rx lisinopril 10 mg tablet 10 mg PO DAILY #90 tabs 04/1909/05/25 Rx simvastatin 20 mg tablet 20 mg PO DAILY #90 tabs 04/1909/05/25 Rx omeprazole 40 mg capsule,delayed 40 mg PO DAILY #30 ca ps 07/05/25 09/05/25 Rx release prochlorperazine maleate 5 mg 5 mg PO Q8H PRN nausea a nd 07/05/25 08/25/25 Rx tablet (Compazine) vomiting #60 tabs alprazolam 0.25 mg tablet 0.25 mg PO BID PRN anxiety # 60 tabs 07/13/25 08/25/25 Rx ferrous sulfate 325 mg (65 mg 325 mg PO BID #60 tabs 0 07/14/25 09/05/25 Rx iron) tablet,delayed release Patient hx anesthesia problems: none Family hx anesthesia problems: none Results Review: All pre-operative results and documents have been reviewed as part of the pre- operative evaluation. [facility] Past Medical History Medical History (Updated 09/05/25 @ 10:19 by Harley Short MD) Pure hypercholesterolemia, unspecified Pure hypercholesterolemia Prediabetes Other dorsalgia Obesity, unspecified Essential (primary) hypertension Shingles Anxiety Hypothyroid Gallbladder disease HLD (hyperlipidemia) Surgical History Surgical History History of History of partial hysterectomy History of cholecystectomy Family History Family History Mother Liver cancer Hepatitis Father Alcohol abuse Sibling A-fib Social History Social History Smoking status: Never smoker Second hand tobacco smoke exposure: No Alcohol intake: never Substance use: never Substance use type: does not use Do You Feel Safe in your Home?: Yes Lack of Transportation: No Lack of Food: Never True Current Housing: I Have Housing Concerned About Future Housing: No Difficulty Paying Gas/Electric Bills: No Difficulty Paying for Meds: No Currently Unemployed: No Education: High School Diploma/GED Difficulty w/ Childcare or Family Care: No Living arrangements: with family Occupation/Education: occupation Additional occupation/education comments: [employer] years and retiring next week. Gender identity (if verbalized by the patient): Female Spiritual care concerns: No Anes - Eval Final PreProcedure Day of Procedure 09/05/25 10:19 Patient weight: obese Heart: regular rate and rhythm Lungs: clear to auscultation Airway: Mallampati scale class II Neurological: alert and oriented Last oral intake: >/= 8 hours ASA classification: III Emergent: no Anesthetic plan: proceed Anesthesia type and monitoring: general GIVS and standard monitoring Results Review: All pre-operative results and documents have been reviewed as part of the pre- operative evaluation. Informed Consent: The patient's anesthetic plan and its attendant risks and benefits were discussed with the patient/family/POA. Questions were solicited and answers provided to the satisfaction of the patient/family/POA.
--- NOTE | 2025-09-05 10:53 | P.HP_ITS ---
H&P: HPI History of Present Illness Date/Time: 09/05/25 10:53 Chief Complaint: Iron deficiency [id number] Narrative: Patient referred for EGD and colonoscopy. She has been having intermittent heartburn now controlled with PPIs. Two years ago she underwent a full workup for iron deficiency anemia including an EGD and a colonoscopy which did not reveal any explanation for this. A capsule endoscopy was never performed. Review of Systems Review of Systems: All systems reviewed & are unremarkable except as noted in HPI and below PMFSH Past Medical History Medical History (Updated 09/05/25 @ 10:54 by Moncho Hickman MD) Pure hypercholesterolemia, unspecified Pure hypercholesterolemia Prediabetes Other dorsalgia Obesity, unspecified Essential (primary) hypertension Shingles Anxiety Hypothyroid Gallbladder disease HLD (hyperlipidemia) Surgical History Surgical History History of History of partial hysterectomy History of cholecystectomy Family History Family History Mother Liver cancer Hepatitis Father Alcohol abuse Sibling A-fib Social History Social History Smoking status: Never smoker Second hand tobacco smoke exposure: No Alcohol intake: never Substance use: never Substance use type: does not use Do You Feel Safe in your Home?: Yes Lack of Transportation: No Lack of Food: Never True Current Housing: I Have Housing Concerned About Future Housing: No Difficulty Paying Gas/Electric Bills: No Difficulty Paying for Meds: No Currently Unemployed: No Education: High School Diploma/GED Difficulty w/ Childcare or Family Care: No Living arrangements: with family Occupation/Education: occupation Additional occupation/education comments: [employer] 27 years and retiring next week. Gender identity (if verbalized by the patient): Female Spiritual care concerns: No Meds Home Medications and Allergies Home Medications ?Medication ?Instructions ?Recorded ?Confirmed ?Type naproxen 500 mg tablet See Rx Instructions .Route 0 04/25/25 09/05/25 Rx .COMPLEX #180 tabs levothyroxine 88 mcg tablet 88 mcg PO DAILY #90 tabs 0 04/26/25 09/05/25 Rx lisinopril 10 mg tablet 10 mg PO DAILY #90 tabs 04/1909/05/25 Rx simvastatin 20 mg tablet 20 mg PO DAILY #90 tabs 04/1909/05/25 Rx omeprazole 40 mg capsule,delayed 40 mg PO DAILY #30 ca ps 07/05/25 09/05/25 Rx release prochlorperazine maleate 5 mg 5 mg PO Q8H PRN nausea a nd 07/05/25 08/25/25 Rx tablet (Compazine) vomiting #60 tabs alprazolam 0.25 mg tablet 0.25 mg PO BID PRN anxiety # 60 tabs 07/13/25 08/25/25 Rx ferrous sulfate 325 mg (65 mg 325 mg PO BID #60 tabs 0 07/14/25 09/05/25 Rx iron) tablet,delayed release Allergies Allergy/AdvReac Type Severity Reaction Status Date / Time meloxicam Allergy Intermediate Hives Verified 09/05/25 09:48 Vital Signs Vital Signs - 24 hr 09/05/25 09:40 Temperature 97.2 F L Pulse Rate 59 L Respiratory Rate 12 Blood Pressure 136/75 Pulse Oximetry 97 Oxygen Delivery Room Air Exam Const: General: cooperative and healthy appearing Resp: Effort & Inspection: normal respiratory effort and able to speak in complete sentences Auscultation: clear to auscultation bilaterally Cardio: Rate: regular rate Rhythm: regular rhythm GI: Inspection: normal to inspection GI Palp: No No hepatosplenomegaly present Auscultation: normal bowel sounds Rectal Exam: deferred Skin: General skin exam: normal color Psych: Appearance: grossly normal Mental Status: mental status grossly normal Assessment and Plan Assessment and plan (1) Iron deficiency anemia: Code(s): D50.9 - Iron deficiency anemia, unspecified Status: Acute Assessment and Plan: The patient is deemed a good candidate for the procedures. Consent signed. Will proceed.
--- NOTE | 2025-09-05 11:31 | S_PTH ---
PATIENT: Vero Anderson LOC: [facility] U#:[id number] AGE/SX: 65/F ROOM: RE09/05/[address]: Moncho Hickman MD : 1960 BED: DIS: 09/05/2025 SPEC #: [id number] RECD: 09/05/25 12:14 STATUS: ELLEN RENya #: [id number] MARA: 09/05/25 11:[address]: Moncho Hickman DEPT: [facility] Surgical RECD BY: Calixto Whaley ENTERED: 09/05/25 12:15 SP TYPE: Surgical OTHR DR: Abram Aguilar, Tissues: A - Gastric Biopsy B - Gastric Biopsy C - Colon Biopsy D - Colon Biopsy Procedures: Hematoxylin and Eosin Stain Gross and Microscopic Level 4 Synaptoshysin H.Pylori
--- NOTE | 2025-09-05 11:32 | SUR.OPER ---
EGD START: 1103, EGD END: 1108 COLONOSCOPY START: 1116, END: 1130
[2025-09-05 11:33] VITALS: BP 96/61; PULSE 59; RESP 19; O2SAT 97
[2025-09-05 11:43] VITALS: BP 103/63; PULSE 55; RESP 14; O2SAT 97
[2025-09-05 11:53] VITALS: BP 115/63; PULSE 52; RESP 18; O2SAT 97
== END 2025-09-05 12:02 | disposition home or self-care (01) ==
PROVIDERS: PCP Internal Medicine; Visit Provider Internal Medicine Gastroenterology
PROC: 0DJ08ZZ Inspection of Upper Intestinal Tract, Via Natural or Artificial Opening Endoscopic (ICD-10-PCS; CPT 45378; principal; 2025-09-05 10:30)
DX: D50.9 Iron deficiency anemia, unspecified (principal); K29.50 Unspecified chronic gastritis without bleeding; K57.30 Diverticulosis of large intestine without perforation or abscess without bleeding; E78.00 Pure hypercholesterolemia, unspecified; R73.03 Prediabetes; I10 Essential (primary) hypertension; E03.9 Hypothyroidism, unspecified; F41.9 Anxiety disorder, unspecified; E66.9 Obesity, unspecified; Z68.33 Body mass index [BMI] 33.0-33.9, adult; Z79.1 Long term (current) use of non-steroidal anti-inflammatories (NSAID); Z98.890 Other specified postprocedural states; Z90.49 Acquired absence of other specified parts of digestive tract; Z80.0 Family history of malignant neoplasm of digestive organs
CPT/HCPCS: 43239; 45380; 88305; 88342; J2003; J2704; J7120

== ENCOUNTER 2025-09-07 07:34 | Outpatient (CLI) | payer MEDICARE, SELFPAY ==
--- NOTE | ~2025-09-07 | MR_ITS ---
EXAM/PROCEDURE: MR pelvis wo/w con HISTORY: abnormal CT between sigmoid and vaginal cuff f/u . Reference is made to 1.2 cm density or lesion along the undersurface of the sigmoid colon contiguous with the vaginal cuff. COMPARISON: Previous CT examination is not available for direct comparison. TECHNIQUE: Multiplanar pre and postcontrast enhanced pelvic MRI performed. FINDINGS: Patient is status post hysterectomy. Mild infiltrative/edematous appearing changes present in close proximity to the distal sigmoid colon extending to the rectosigmoid junction. There is mild wall thickening in the sigmoid colon in this area. Tissue planes between the vaginal cuff and the rectum, as well as between the urinary bladder and vaginal cuff appear preserved. There are 2 separate areas of irregular signal and morphology along the inferior margin of the sigmoid colon adjacent to or contiguous with vaginal cuff. One is a slightly irregular cystic appearing focus seen on image 16 series 10 and image 15 series 4 which measures 1.6 x 1.2 x 0.6 cm. A second area of nodular appearing focus which is hypointense on T1 and T2- weighted sequences with no compelling enhancement is seen to the right. Midline portion of the lower sigmoid colon image 17 series 10 and measures 1.3 x 1.0 x 0.6 cm. No other discrete lesion or tissue focus seen to explain source of findings on CT exam. Moderately severe diverticular disease within the field of view. IMPRESSION: 1. Soft tissue focus described on recent CT exam probably corresponds to one of the areas above with indeterminate signal and enhancement features. Follow-up MRI in 3-6 months is recommended or sooner if clinically appropriate. 2. Slightly thickened appearance of the sigmoid wall with surrounding infiltrative changes consistent with persisting diverticulitis. Correlate with clinical presentation and exam for additional imaging of the large intestine as clinically appropriate. Reviewed, dictated and finalized at location A. ER INFORMATION SPECIALIST IMPRESSION: 1. Soft tissue focus described on recent CT exam probably corresponds to one of the areas above with indeterminate signal and enhancement features. Follow-up MRI in 3-6 months is recommended or sooner if clinically appropriate. 2. Slightly thickened appearance of the sigmoid wall with surrounding infiltrat giancarlo changes consistent with persisting diverticulitis. Correlate with clinical presentation and exam for additional imaging of the large intestine as clinical ly appropriate.
== END 2025-09-07 07:35 | disposition home or self-care (01) ==
PROVIDERS: PCP Internal Medicine; Visit Provider Nurse Practitioner
DX: R93.5 Abnormal findings on diagnostic imaging of other abdominal regions, including retroperitoneum (principal)
CPT/HCPCS: 72197; A9577

== ENCOUNTER 2025-10-09 10:42 | Outpatient (CLI) | payer MEDICARE, SELFPAY ==
--- OUTSIDE RECORDS SUMMARY | 2025-10-09 12:26 | XMS_ITS | Clinical Summary ---
Author Organization [facility] [place] Address [address] [place] [address] Care Team Providers Care Vp Scientific Name Role Phone Abram Aguilar DO Primary Care Provider [phone] Allergies No known active allergies Active Problems Problem Noted Date Diagnosed Date Atopic rhinitis 03/04/2014 Overview (01/21/2017): ALLERGIC RHINITIS NOS Hypothyroidism 03/04/2014 Overview (01/23/2017): Hypothyroidism Hyperlipidemia 03/04/2014 Overview (01/23/2017): HYPERLIPIDEMIA NEC/NOS Hematochezia 11/17/2012 Encounters Date Type Department Care Team Description 07/25/2025 12:32 PM CDT - 07/25/2025 11:59 PM CDT Hospital [facility] [place] [address] [place] [address] Other fecal abnormalities; Nausea; Right [...] on file Legal Sex 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 Gender Identity Not on file Sexual Orientation Not on file Last Filed Vital Signs Vital Sign Reading Time Taken Comments Blood Pressure 147/88 11/15/2012 2:57 PM PRINTED CIRCUIT BOARD PCB DESIGNER Pulse 87 11/15/2012 2:57 PM PRINTED CIRCUIT BOARD PCB DESIGNER Temperature - - Respiratory Rate - - Oxygen Saturation - - Inhaled Oxygen Concentration - - Weight 85.4 kg (188 lb 4 oz) 11/15/2012 2:57 PM PRINTED CIRCUIT BOARD PCB DESIGNER Height 158.8 cm (5' 2.5) 11/15/2012 2:57 PM PRINTED CIRCUIT BOARD PCB DESIGNER Body Mass Index 33.88 11/15/2012 2:57 PM PRINTED CIRCUIT BOARD PCB DESIGNER Plan of Treatment Health Maintenance Due Date [...] by Marcia Villanueva M.D. T: Report ID: [id number] Reading Location: [id number] Procedure Note Leonora Villanueva MD - 07/28/2025 [...] signed by Marcia CARVALHO T: Report ID: [id number] Reading Location: [place] [address] [address] NP IMG CT PROCEDURES Final Result from Last [address] [place] [address] [facility] MEDICARE GOLD [employer] MEDICARE GOLD Care Teams Vp Scientific Relationship Specialty Start Date End Date Abram Aguilar DO [address] [place], [place] [id number] PCP - General Internal Medicine 07/17/25
--- OUTSIDE RECORDS SUMMARY | 2025-10-09 12:26 | XMS_ITS | Clinical Summary ---
Author Organization [facility] Address [address] [place] [address] Care Team Providers Care Carnallite Plant Operator Name Role Phone Unavailable Primary Care Provider Unavailabl e Social History Tobacco Use Types Packs/Day Years Used Date Smoking Tobacco: Never Assessed Comments Unknown Sex and Gender Information Value Date Recorded Sex Assigned at Not on file Legal Sex Female 7:23 PM EST Gender Identity Not on file Sexual Orientation Not on file Plan of Treatment Not on file Medical Devices Not on file
--- OUTSIDE RECORDS SUMMARY | 2025-10-09 12:26 | XMS_ITS | Clinical Summary ---
Author Organization [facility]rell Baneg[facility] Address [address] [place] [address] Phone Care Team Providers Care Public Health Program Manager Name Role Phone Topher Guo PA-C Primary [...] 36.7 C (98.1 F) 11/17/2020 8:20 AM EMERGENCY RESPONSE OFFICER Respiratory Rate 17 03/12/2022 9:50 AM CDT Oxygen Saturation 99% 03/12/2022 9:50 AM CDT Inhaled Oxygen Concentration - - Weight 83.9 kg (185 lb) 11/26/2021 10:27 AM EMERGENCY RESPONSE OFFICER Height 157.5 cm (5' 2) 11/26/2021 10:27 AM EMERGENCY RESPONSE OFFICER Body Mass Index 33.84 11/26/2021 10:27 AM EMERGENCY RESPONSE OFFICER Plan of Treatment Upcoming Encounters Date Type Department Care Team (Late st Contact Info) Description 12/20/2025 1:30 PM EMERGENCY RESPONSE OFFICER Office Visit [facility] Oncology and Hematology - [place] [address] [facility] [address] [place] [address] Shon Flores MD [address] [facility] [address] [place] [address] Health Maintenance Due Date Last Done Comments [...] series) 2034 Medical Devices Implanted Type Area Laydown Machine Operator Device Identifier Shelf Expiration Date Model / Serial / Lot Vitoss Foam Pack Ba2x 1.2ml - Sna Implanted:Qty : 1 on 11/16/2020 by Nguyễn Fung MD at [facility] Biological N/A: Spine Cervical Anterior CORINE- SPINE 01/13/2021 / NA / [id number] Hemostatic Surgiflo 8ml W/Thrombin 299 - [id number] Implanted:Qty : 1 on 11/16/2020 by Nguyễn Fung MD at [facility] Hemostatic N/A: Neck [employer] 07/18/2021 299 / / [id number] Hemostatic Surgifoam Sz12-7 1971 - [id number] Implanted:Qty : 1 on 11/16/2020 by Nguyễn Fung MD at [facility] Hemostatic N/A: Neck [employer]J- [employer] 02/01/20241971 / / [id number] Plate Aviator 1lvl 12mm [id number] - [id number] Implanted:Qty : 1 on 11/16/2020 by Nguyễn Fung MD at [facility] Plate N/A: Spine Cervical Anterior CORINE- SPINE [id number] / / Description:load process 11/16/20 BARBI REQ#[id number] Screw Avtr [address] 4.0x14mm [id number] - [id number] Implanted:Qty : 2 on 11/16/2020 by Nguyễn Fung MD at [facility] Screw N/A: Spine Cervical Anterior [employer]INE- SPINE [id number] / / Description:load [id number] process 11/16/[address] 4.0x14mm [id number] - [id number] Implanted:Qty : 2 on 11/16/2020 by Nguyễn Fung MD at [facility] Screw N/A: Spine Cervical Anterior CORINE- SPINE [id number] / / Description:load [id number] process 11/15/2020 Procedures Procedure Name Priority Date/Time [...] Recently Relevant to Health Maintenance Insurance R [facility] OPTIONS PPO [id number] [employer] [place] [address] [place] [address] [employer] O MCR Advance Directives For more information, please contact: [phone] * Full Code (Latest Code Status on File) Date Activated Date Inactivated Comments 11/16/2020 11:41 AM 11/17/2020 3:55 PM Care Teams Public Health Program Manager Relationship Specialty Start Date End Date Topher Guo PA-C PCP - General Physician Razor Grinder 08/22/20
[2025-10-12 00:07] LABS: Calprotectin, Fecal 910 ug/g (0-120)
== END 2025-10-09 10:43 | disposition home or self-care (01) ==
PROVIDERS: PCP Internal Medicine; Visit Provider Nurse Practitioner
DX: R19.7 Diarrhea, unspecified (principal); D50.9 Iron deficiency anemia, unspecified; E53.8 Deficiency of other specified B group vitamins; R10.11 Right upper quadrant pain; R19.5 Other fecal abnormalities
CPT/HCPCS: 83993; 87045; 87046; 87427; 87507

== ENCOUNTER 2025-10-11 05:38 | Outpatient (CLI) | payer MEDICARE, SELFPAY ==
--- NOTE | 2025-10-02 13:01 | PC.NURSE ---
Spoke with Pt. and went over all the instructions and information for the givens capsule and it will be sent via portal by Nayeli Baldwin per Pt request
--- NOTE | 2025-10-11 06:34 | SUR.OPER ---
Patient brought to GI Lab. Instructions for patient undergoing Capsule Endoscopy reviewed with patient. Consent form signed. Sensor array applied to patient's abdomen and connected to recorded. Patient swallowed capsule with 16 ozs of water infused with Simethicone. Patient instructed they may have clear liquids at 8:30 this AM and eat or drink at 10:30 this AM. Patient instructed to return to GI Lab at 1500 this afternoon for removal of recording device and to call [phone] or to return to the hospital if any nausea and vomiting or abdominal pain is experienced.
--- NOTE | 2025-10-11 13:47 | SUR.PHASEII ---
Patient returned to the GI Lab at 1347 for recorder box removal. Patient voiced no complaints. States they have understanding of instructions. Patient left ambulatory.
== END 2025-10-11 05:39 | disposition home or self-care (01) ==
PROVIDERS: PCP Internal Medicine; Referring Provider Nurse Practitioner; Visit Provider Internal Medicine Gastroenterology
PROC: (CPT 91110; principal; 2025-10-11 07:00)
DX: D50.9 Iron deficiency anemia, unspecified (principal); R19.5 Other fecal abnormalities
CPT/HCPCS: 91110